=== PATIENT | male | born 1960 | race Caucasian/White ===

== ENCOUNTER 2019-01-10 16:15 | Observation (INO) | payer MEDICARE, OTHER ==
[2019-01-10] MEDS ORDERED: Aspirin 325 mg EC Tablets PO STA (16:59)
--- NOTE | 2019-01-10 17:04 | C.PDOC ---
History Of Present Illness 58 year old male with a past medical history of high cholesterol and schizophrenia presents to the emergency department with complaints of chest pain which first occurred 4 days ago. Patient states that he woke up 4 days ago and went to the bathroom where he first had the chest pain, yet it subsided. He reports the same symptoms when waking up and using the bathroom this morning. He reports taking Aspirin today for the pain. Patient reports that the pain has been constant all day, and describes the pain as a squeezing. He denies shortness of breath, dizziness, sweats, nausea, vomiting, diarrhea, and recent travel. He denies smoking and drinking. Time Seen by Provider: 01/10/19 16:30 Chief Complaint (Nursing): Chest Pain History Per: Patient History/Exam Limitations: no limitations Onset/Duration Of Symptoms: Days (4), Intermittent Episodes Current Symptoms Are (Timing): Still Present Quality: Squeezing, "Pain" Associated Symptoms: denies: Nausea, Dyspnea, Diaphoresis Recent travel outside of the [place]: No Past Medical History Reviewed: Historical Data, Nursing Documentation, Vital Signs Vital Signs: Last Vital Signs Temp 98.6 F 01/10/19 16:24 Pulse 71 01/10/19 16:24 Resp 18 01/10/19 16:24 BP 115/70 01/10/19 16:24 Pulse Ox 100 01/10/19 16:24 - Medical History PMH: Hypercholesterolemia, Schizophrenia Surgical History: No Surg Hx Family History: States: No Known Family Hx - Social History Hx Alcohol Use: No Hx Substance Use: No - Immunization History Hx Tetanus Toxoid Vaccination: No Hx Influenza Vaccination: No Hx Pneumococcal Vaccination: No Review Of Systems Except As Marked, All Systems Reviewed And Found Negative. Constitutional: Negative for: Fever, Chills, Sweats Cardiovascular: Positive for: Chest Pain Gastrointestinal: Negative for: Nausea, Vomiting, Diarrhea Physical Exam - Physical Exam Appears: Non-toxic, No Acute Distress Skin: Normal Color, Warm, Dry Head: Atraumatic, Normacephalic Eye(s): bilateral: Normal Inspection, PERRL, EOMI Nose: Normal Oral Mucosa: Moist Neck: Normal, Supple Chest: Symmetrical, No Tenderness Cardiovascular: Rhythm Regular, No Murmur Respiratory: Normal Breath Sounds, No Rales, No Rhonchi, No Wheezing Gastrointestinal/Abdominal: Soft, No Tenderness, No Guarding, No Rebound Extremity: Normal ROM Neurological/Psych: Oriented x3, Normal Speech, Normal Cognition ED Course And Treatment - Laboratory Results Result Diagrams: 01/10/19 17:25 01/10/19 17:25 Interpretation Of ECG: Normal sinus rhythm at 66bpm. Normal axis, normal intervals, no ST/T wave changes. O2 Sat by Pulse Oximetry: 100 (RA) Pulse Ox Interpretation: Normal Medical Decision Making Medical Decision Making: Plan: EKG Chemistry CBC CXR Ecotrin 325mg PO Nitrostat SL Tab 0.4mg SL 19:50 Case d/w Dr. Glez (covering for Dr. Bre Worthy), states to admit to Dr. Bre Abebe. Disposition Counseled Patient/Family Regarding: Studies Performed, Diagnosis - Disposition Disposition: HOSPITALIZED Disposition Time: 20:25 Condition: STABLE Forms: [facility] (Slovenian) - Clinical Impression Clinical Impression: Chest pain
[2019-01-10 17:29] LABS: BASO % 0.7 % (0.0-2.0); EOS # 0.1 K/uL (0.0-0.7); EOS % 1.5 % (0.0-4.0); HEMOGLOBIN 12.7 g/dL (12.0-18.0); LYMPH # 1.3 K/uL (1.0-4.3); LYMPH % 37.3 % (20.0-40.0); MEAN CELL VOLUME 87.6 fL (80.0-94.0); MEAN CORPUSCULAR HEMOGLOBIN 27.7 pg (27.0-31.0); MEAN CORPUSCULAR HGB CONC 31.7 g/dL (33.0-37.0); MEAN PLATELET VOLUME 7.7 fL (7.2-11.7); MONO # 0.3 K/uL (0.0-0.8); MONO % 8.5 % (0.0-10.0); NEUT # 1.8 K/uL (1.8-7.0); RBC 4.59 Mil/uL (4.40-5.90); RED CELL DISTRIBUTION WIDTH 13.6 % (11.5-14.5); WHITE BLOOD COUNT 3.4 K/uL (4.8-10.8)
[2019-01-10 17:42] LABS: ALB/GLOB RATIO 1.4 (1.0-2.1); ALBUMIN 4.3 g/dL (3.5-5.0); BLOOD UREA NITROGEN 17 mg/dL (9-20); CALCIUM 9.2 mg/dl (8.6-10.4); GFR NON-AFRICAN AMERICAN > 60
[2019-01-10 17:44] LABS: ALT/SGPT 15 U/L (21-72); AST/SGOT 33 U/L (17-59)
[2019-01-10 22:57] VITALS: RESP 20
[2019-01-10] MEDS ORDERED: Enoxaparin 40 mg Syringe SC STA (23:15)
[2019-01-10] MEDS ORDERED: Enoxaparin 40 mg Syringe SC ONE (23:34)
[2019-01-11 01:08] LABS: CK-MB 0.62 ng/mL (0.0-3.38)
[2019-01-11 07:55] LABS: CK-MB 0.38 ng/mL (0.0-3.38)
--- NOTE | 2019-01-11 15:04 | RAD ---
Date of service: 01/10/2019 PROCEDURE: CHEST RADIOGRAPH, 1 VIEW HISTORY: chest pain COMPARISON: None available. FINDINGS: LUNGS: Clear. PLEURA: No pneumothorax or pleural fluid seen. CARDIOVASCULAR: No aortic atherosclerotic calcification present. Normal. OSSEOUS STRUCTURES: No significant abnormalities. VISUALIZED UPPER ABDOMEN: Normal. OTHER FINDINGS: None. IMPRESSION: No active disease.
--- NOTE | 2019-01-11 17:22 | CP.PCM.HP ---
History of Present Illness - History of Present Illness History of Present Illness: CC chest pain HPI 58 y/o AAM c/o chest pain 4 days ago when he woke up and went to the bathroom. He describes the pain as squeezing associated with sob sometimes. He reports taking Aspirin today for the pain. Patient reports that he experienced similar pain again a few hours prior to admission but more intense prompting him to go to ED . He denies smoking and drinking Review of Systems - Constitutional Constitutional: absent: Daytime Sleepiness, Headache, Malaise - EENT Eyes: absent: Blurred Vision Ears: absent: Ear Pain Nose/Mouth/Throat: absent: Epistaxis - Cardiovascular Cardiovascular: Chest Pain, Chest Pain at Rest, Dyspnea on Exertion, Palpitations - Respiratory Respiratory: Dyspnea, Dyspnea on Exertion - Gastrointestinal Gastrointestinal: absent: Abdominal Pain, Diarrhea - Musculoskeletal Musculoskeletal: absent: Abnormal Gait, Numbness - Neurological Neurological: absent: Abnormal Speech, Disequilibrium, Dizziness, Vertigo - Psychiatric Psychiatric: Auditory Hallucinations, Depression Past Patient History - Past Social History Smoking Status: Never Smoked - CARDIAC Hx Hypercholesterolemia: Yes - PSYCHIATRIC Hx Schizophrenia: Yes Hx Substance Use: No - SURGICAL HISTORY Hx Surgeries: No - ANESTHESIA Hx Anesthesia: No Meds Allergies/Adverse Reactions: Allergies Allergy/AdvReac Type Severity Reaction Status Date / Time No Known Allergies Allergy Verified 01/10/19 16:26 Physical Exam - Constitutional Appears: Non-toxic - Head Exam Head Exam: ATRAUMATIC - Eye Exam Eye Exam: absent: Scleral icterus - ENT Exam ENT Exam: Mucous Membranes Moist - Neck Exam Neck exam: Positive for: Full Rom - Respiratory Exam Respiratory Exam: NORMAL BREATHING PATTERN - Cardiovascular Exam Cardiovascular Exam: REGULAR RHYTHM - Extremities Exam Extremities exam: Negative for: pedal edema - Neurological Exam Neurological exam: Alert, Oriented x3 Results - Vital Signs Recent Vital Signs: Last Vital Signs Temp 97.8 F 01/11/19 09:29 Pulse 73 01/11/19 09:29 Resp 20 01/11/19 09:29 BP 108/71 01/11/19 09:29 Pulse Ox 97 01/11/19 09:29 - Labs Result Diagrams: 01/10/19 17:25 01/10/19 17:25 Labs: Laboratory Results - last 24 hr 01/10/19 01/10/19 01/11/19 17:25 17:25 00:25 WBC 3.4 L RBC 4.59 Hgb 12.7 Hct 40.2 MCV 87.6 MCH 27.7 MCHC 31.7 L RDW 13.6 Plt Count 277 MPV 7.7 Neut % (Auto) 52.0 Lymph % (Auto) 37.3 Mcculloch % (Auto) 8.5 Eos % (Auto) 1.5 Baso % (Auto) 0.7 Neut # (Auto) 1.8 Lymph # (Auto) 1.3 Mcculloch # (Auto) 0.3 Eos # (Auto) 0.1 Baso # (Auto) 0.0 Sodium 144 Potassium 4.8 Chloride 106 Carbon Dioxide 29 Anion Gap 14 BUN 17 Creatinine 0.9 Est GFR ( Amer) > 60 Est GFR (Non-Af Amer) > 60 Random Glucose 126 H Calcium 9.2 Total Bilirubin 0.7 AST 33 ALT 15 L Alkaline Phosphatase 48 Total Creatine Kinase 99 CK-MB (Mass) 0.62 Troponin I < 0.0120 < 0.0120 Total Protein 7.3 Albumin 4.3 Globulin 3.0 Albumin/Globulin Ratio 1.4 01/11/19 07:23 WBC RBC Hgb Hct MCV MCH MCHC RDW Plt Count MPV Neut % (Auto) Lymph % (Auto) Mcculloch % (Auto) Eos % (Auto) Baso % (Auto) Neut # (Auto) Lymph # (Auto) Mcculloch # (Auto) Eos # (Auto) Baso # (Auto) Sodium Potassium Chloride Carbon Dioxide Anion Gap BUN Creatinine Est GFR ( Amer) Est GFR (Non-Af Amer) Random Glucose Calcium Total Bilirubin AST ALT Alkaline Phosphatase Total Creatine Kinase 79 CK-MB (Mass) 0.38 Troponin I < 0.0120 Total Protein Albumin Globulin Albumin/Globulin Ratio Assessment & Plan - Assessment and Plan (Free Text) Assessment: ACS Depression Plan: Trops ECHO Lexiscan
[2019-01-11] MEDS: Ranolazine 500 mg Extended Release Tablets PO SCH (19:12)
[2019-01-11] MEDS: Enoxaparin 40 mg Syringe SC SCH (21:52)
[2019-01-12] MEDS ORDERED: Caffeine Citrated **INJ** 20 MG/ML IV ONE (08:33)
[2019-01-12] MEDS ORDERED: Pneumococcal 23-Valent Vaccine IM ONE ×2 (10:00→11:08)
[2019-01-12 11:46] LABS: BASO % 0.4 % (0.0-2.0); EOS % 1.1 % (0.0-4.0); HEMOGLOBIN 12.9 g/dL (12.0-18.0); LYMPH # 1.1 K/uL (1.0-4.3); LYMPH % 29.9 % (20.0-40.0); MEAN CORPUSCULAR HEMOGLOBIN 28.6 pg (27.0-31.0); MEAN CORPUSCULAR HGB CONC 32.6 g/dL (33.0-37.0); MEAN PLATELET VOLUME 8.1 fL (7.2-11.7); MONO # 0.5 K/uL (0.0-0.8); MONO % 13.9 % (0.0-10.0); NEUT % 54.7 % (50.0-75.0); RBC 4.51 Mil/uL (4.40-5.90); RED CELL DISTRIBUTION WIDTH 13.2 % (11.5-14.5); WHITE BLOOD COUNT 3.6 K/uL (4.8-10.8)
[2019-01-12 12:09] LABS: ALB/GLOB RATIO 1.5 (1.0-2.1); ALBUMIN 3.9 g/dL (3.5-5.0); ALT/SGPT 19 U/L (21-72); AST/SGOT 25 U/L (17-59); BLOOD UREA NITROGEN 17 mg/dL (9-20); CALCIUM 9.2 mg/dl (8.6-10.4); GFR NON-AFRICAN AMERICAN > 60
[2019-01-12] MEDS: Enoxaparin 40 mg Syringe SC SCH (12:36)
[2019-01-12] MEDS: Ranolazine 500 mg Extended Release Tablets PO SCH ×2 (12:44→18:34)
--- NOTE | 2019-01-12 20:24 | CARD ---
APPROVED REPORT Date of service: 01/12/2019 EXAM: Two-dimensional and M-mode echocardiogram with Doppler and color Doppler. Other Information Quality : GoodRhythm : INDICATION Chest Pain 2D DIMENSIONS IVSd1.3 (0.7-1.1cm)LVDd3.6 (3.9-5.9cm) PWd1.2 (0.7-1.1cm)LA Lsvrwd06 (18-58mL) LVDs2.3 (2.5-4.0cm)FS (%) 36.5 % LVEF (%)67.2 (>50%)LVEF (Tay's)61.12 % M-Mode DIMENSIONS Left Atrium (MM)2.92 (2.5-4.0cm)IVSd1.26 (0.7-1.1cm) Aortic Root3.91 (2.2-3.7cm)LVDd4.55 (4.0-5.6cm) Aortic Cusp Exc.2.74 (1.5-2.0cm)PWd0.93 (0.7-1.1cm) FS (%) 42 %LVDs2.65 (2.0-3.8cm) LVEF (%)73 (>50%) Mitral Valve MV E Bbtgktjb01.8cm/sMV A Oqfsvciq16.4cm/sE/A ratio0.7 TDI Lateral E' Peak V8.55cm/sMedial E' Peak V6.93cm/sE/Lateral E'5.9 E/Medial E'7.3 Tricuspid Valve TR Peak Sfatskwr636as/sTR Peak Gr.56goOtWYBC96tlHj LEFT VENTRICLE The left ventricle is normal size. There is normal left ventricular wall thickness. The left ventricular function is normal. The left ventricular ejection fraction is within the normal range. No regional wall motion abnormalities noted. Transmitral Doppler flow pattern is Grade I-abnormal relaxation pattern. Normal LV filling pressure No left ventricle thrombus noted on this study. There is no ventricular septal defect visualized. There is no left ventricular aneurysm. There is no mass noted in the left ventricle. RIGHT VENTRICLE The right ventricle is normal size. There is normal right ventricular wall thickness. The right ventricular systolic function is normal. ATRIA The left atrium size is normal. The right atrium size is normal. The interatrial septum is intact with no evidence for an atrial septal defect. AORTIC VALVE The aortic valve is normal in structure and function. No aortic regurgitation is present. There is no aortic valvular stenosis. There is no aortic valvular vegetation. MITRAL VALVE The mitral valve is normal in structure and function. There is no evidence of mitral valve prolapse. There is no mitral valve stenosis. There is no mitral valve regurgitation noted. TRICUSPID VALVE The tricuspid valve is normal in structure and function. There is no tricuspid valve regurgitation noted. There is no tricuspid valve prolapse or vegetation. There is no tricuspid valve stenosis. PULMONIC VALVE The pulmonary valve is normal in structure and function. There is no pulmonic valvular regurgitation. There is no pulmonic valvular stenosis. GREAT VESSELS The aortic root is normal in size. The ascending aorta is normal in size. The pulmonary artery is normal. The IVC is normal in size and collapses >50% with inspiration. PERICARDIAL EFFUSION The pericardium appears normal. There is no pleural effusion. <Conclusion> The left ventricular function is normal. The left ventricular ejection fraction is within the normal range. No regional wall motion abnormalities noted. Transmitral Doppler flow pattern is Grade I-abnormal relaxation pattern. Normal LV filling pressure
--- NOTE | 2019-01-12 23:58 | CARD ---
APPROVED REPORT Date of service: 01/12/2019 Protocol: LEXISCAN Test Type: LEXISCAN STRESS Test Indications: CP Medical History: CP Target HR: 164 bpm Resting ECG: NSR Resting Heart Rate: 71 bpm Resting Blood Pressure: 128/80mmHg submaximum (85%): 139 bpm TEST SUMMARY PREINFSNHYPERV.26:[id number]/80.0. INFUSIONDOSE 100:300.00.01.073/.0. ODORGPUKZ08:[id number]/80.0. PROCEDURE Pharmacologic stress testing was performed using 0.4mg per 5ml of regadenoson given intravenously over 7-10 seconds. POST EXERCISE Reason for Termination: Protocol Completed Target HR: No Max HR: 73 bpm 65% of Maximum Predicted HR: 164 bpm Exercise duration: 00:30 min:sec, 0 Stage Exercise capacity: 1.0METs Max Blood Pressure: 130/80mmHg Blood Pressure response to exercise: normal resting BP - appropriate response Heart Rate response to exercise: appropriate Chest Pain: No, none Angina index: 0 Arrhythmia: No, none ST Change: No, none Deviation: 0 mm INTERPRETATION Stress EKG Conclusion: NEGATIVE LEXISCAN STRESS TEST NORMAL BP RESPONSE TO LEXISCAN NUCLEAR STUDIES TO BE READ SEPARATELY EXAM: Myocardial Perfusion STRESS/REST Imaging Protocol The imaging protocol used to acquire images was Stress Tc-99m/rest Tc-99m 1 day Stress Spect myocardial perfusion imaging was performed in supine position 45 minutes following the injection of 13.2 mCi of Tc-99 Myoview. Gated Rest Spect was performed 44 minutes after intravenous 33 mCi Tc-99 Myoview injection. The images were gated to evaluate regional wall motion and calculate ventricular ejection fraction.Images were reconstructed using backfilter projection method in short horizontal and verticle long axis. Spect slices were generated. RESTING DATA EDV89.56alZJ0.80L/min ESV33.00mlMyocardial Vzlc907.00g Av. Heart Rate67.00bpm EF63.00% STRESS DATA EDV95.54myZC8.70L/min ESV27.00mlMyocardial Rpth270.00g EF72.00% Regional WT score at stress:1.00 Regional WM score at stress:0.00 Summed WT score at stress:3.00 Av. Heart Rate69.00bpmSummed WM score at stress:0.00 LV Perf. Quant 17 Seg. SSS0.00 17 Seg. SRS0.00 17 Seg. SDS0.00 Stress Defect Extent (% LAD)0.00Rest Defect Extent (% LAD)0.00Rev. Defect Extent (% LAD)0.00 Stress Defect Extent (% LCX)0.00Rest Defect Extent (% LCX)0.00Rev. Defect Extent (% LCX)0.00 Stress Defect Extent (% RCA)0.00Rest Defect Extent (% RCA)0.00Rev. Defect Extent (% RCA)0.00 Stress Defect Extent (% KERRI)0.00Rest Defect Extent (% KERRI)0.00Rev. Defect Extent (% KERRI)0.00 IMPRESSION Normal Myocardial Perfusion exercise stress study Left Ventricle LV Function:Left ventricle systolic function is normal. The Ejection Fraction is >70%. Metabolism/Perfusion Defects: There is no stress-induced ischemia noted. There are no perfusion/metabolism defects. Conclusion 1. There is no stress-induced ischemia noted. 2. Left ventricle systolic function is normal. 3. The Ejection Fraction is >70%.
--- NOTE | 2019-01-13 08:57 | CP.PCM.PN ---
Subjective - Date & Time of Evaluation Date of Evaluation: 01/12/19 Time of Evaluation: 09:00 - Subjective Subjective: Lexiscan stress test done - NEGATIVE FOR ISCHEMIA Will do Tilt table test in AM Objective - Vital Signs/Intake and Output Vital Signs (last 24 hours): Temp Pulse Resp BP Pulse Ox 98.1 F 87 20 110/68 96 01/13/19 08:45 01/13/19 08:45 01/13/19 08:45 01/13/19 08:45 01/13/19 08:45 - Medications Medications: Current Medications Aspirin (Aspirin Chewable) 81 mg PO DAILY [facility] Last Admin: 01/12/19 12:35 Dose: 81 mg Enoxaparin Sodium (Lovenox) 40 mg SC DAILY [facility] Last Admin: 01/12/19 12:36 Dose: 40 mg Ranolazine (Ranexa) 500 mg PO BID [facility] Last Admin: 01/12/19 18:34 Dose: 500 mg Risperidone (Risperdal Tab) 3 mg PO HS [facility] Last Admin: 01/12/19 22:00 Dose: 3 mg Rosuvastatin Calcium (Crestor) 10 mg PO HS [facility] Last Admin: 01/12/19 22:00 Dose: 10 mg - Labs Labs: 01/12/19 11:29 01/12/19 11:29
[2019-01-13] MEDS: Ranolazine 500 mg Extended Release Tablets PO SCH (09:13)
[2019-01-13] MEDS: Enoxaparin 40 mg Syringe SC SCH (09:14)
--- NOTE | 2019-01-13 12:13 | CARD ---
APPROVED REPORT Date of service: 01/10/2019 EKG Measurement Heart [id number] RI [id number] [id number] <Conclusion> Normal sinus rhythm Normal ECG
[2019-01-13 15:56] VITALS: BP 111/71; PULSE 80; TEMP 98
[2019-01-13 17:40] VITALS: O2SAT 97
--- NOTE | 2019-01-13 18:06 | CP.PCM.PN ---
Objective - Vital Signs/Intake and Output Vital Signs (last 24 hours): Temp Pulse Resp BP Pulse Ox 98 F 80 20 111/71 97 01/13/19 15:00 01/13/19 15:00 01/13/19 15:00 01/13/19 15:00 01/13/19 16:59 - Medications Medications: Current Medications Aspirin (Aspirin Chewable) 81 mg PO DAILY [facility] Last Admin: 01/13/19 09:14 Dose: 81 mg Enoxaparin Sodium (Lovenox) 40 mg SC DAILY [facility] Last Admin: 01/13/19 09:14 Dose: 40 mg Ranolazine (Ranexa) 500 mg PO BID [facility] Last Admin: 01/13/19 09:13 Dose: 500 mg Risperidone (Risperdal Tab) 3 mg PO HS [facility] Last Admin: 01/12/19 22:00 Dose: 3 mg Rosuvastatin Calcium (Crestor) 10 mg PO [facility] Last Admin: 01/12/19 22:00 Dose: 10 mg - Labs Labs: 01/12/19 11:29 01/12/19 11:29 Assessment and Plan - Assessment and Plan (Free Text) Assessment: 58 Year old male admitted with chest pain, seen and examined. Alert and orientedx3, denies sob or chest pains.
== END 2019-01-13 18:27 | disposition home or self-care (01) ==
LOC: C.ER 16:15 → C.9E 20:29 → C.6T 20:52
PROVIDERS: ADMIT Internal Medicine; ATTEND Internal Medicine
DX: R07.89 Other chest pain (principal); F32.9 Major depressive disorder, single episode, unspecified; F20.9 Schizophrenia, unspecified; E78.00 Pure hypercholesterolemia, unspecified
CPT/HCPCS: 36415; 71045; 78452; 80053; 84484; 85025; 90732; 93005; 93017; 93306; 96372; 99284; A9502; G0009; G0378; J1650; J2785